=== PATIENT | male | born 1995 | race Caucasian/White ===

== ENCOUNTER 2022-06-21 00:36 | Emergency (ER) | payer BC ==
[2022-06-21] MEDS ORDERED: Sodium Chloride 0.9% 1,000 ML IV ONE (00:58)
[2022-06-21] MEDS ORDERED: Albuterol/Ipratropium 3.0-0.5 MG/3 ML Neb Soln NEB ONE (00:59)
[2022-06-21 01:16] LABS: ESTIMATED GFR 78 mL/min (>60)
[2022-06-21 02:07] LABS: CORONAVIRUS COVID-19 NAA NEGATIVE (NEGATIVE)
[2022-06-21] MEDS ORDERED: cefTRIAXone 1 GM Vial IV ONE (03:59)
[2022-06-21] MEDS ORDERED: Doxycycline Monohydrate 100 MG Cap PO STA (04:00)
[2022-06-21] MEDS ORDERED: cefTRIAXone 2 GM in Sodium Chloride 0.9% 100 ML IV ONE (04:06)
== END 2022-06-21 04:55 | disposition home health service (06) ==
LOC: JD.ED 00:36
DX: J13 Pneumonia due to Streptococcus pneumoniae (principal); R05.8 Other specified cough; Z20.822 Contact with and (suspected) exposure to COVID-19
CPT/HCPCS: 0241U; 36415; 71045; 80053; 81001; 85025; 85610; 85730; 93005; 94640; 96361; 96365; 99284; A9270; J0696; J7030; J7620-GY